=== PATIENT | female | born 1985 | race Caucasian/White ===

== ENCOUNTER 2018-01-21 12:36 | Day surgery (SDC) | payer OTHER ==
[~2018-01-21 12:36] MED LIST: CEFAZOLIN 1 GM INJ; LIDOCAINE 2% (SDV) 5 ML INJ; ROCURONIUM 50 MG INJ; SUGAMMADEX SODIUM 200 MG/2 ML VIAL IV
[2018-01-21] MEDS ORDERED: PROPOFOL 100 ML (14:41)
[2018-01-21] MEDS ORDERED: ROCURONIUM 50 MG INJ (14:41)
[2018-01-21] MEDS ORDERED: KETOROLAC 30 MG INJ (15:15)
[2018-01-21] MEDS ORDERED: DEXAMETHASONE 4 MG/ML 1 ML INJ (15:32)
[2018-01-21] MEDS ORDERED: ONDANSETRON 4 MG INJ (15:33)
[2018-01-21] MEDS: BUPIVACAINE 0.5% (SDV) 30 ML INJ (16:11)
[2018-01-21] MEDS ORDERED: hydrALAzine 20 MG INJ IV (16:30)
[2018-01-21] MEDS ORDERED: MIDAZOLAM 1 MG/ML 2 ML INJ IV (16:30)
[2018-01-21] MEDS ORDERED: OXYCODONE/ACETAMINOPHEN (5/325) TAB PO ×2 (16:30)
[2018-01-21] MEDS ORDERED: KETOROLAC 30 MG INJ IV (16:30)
[2018-01-21] MEDS ORDERED: ONDANSETRON 4 MG INJ IV (16:30)
[2018-01-21] MEDS ORDERED: FENTAnyl 50 MCG/ML VIAL IV ×2 (16:30)
[2018-01-21] MEDS ORDERED: MEPERIDINE 25 MG INJ IV (16:30)
[2018-01-21] MEDS ORDERED: METOCLOPRAMIDE 10 MG INJ IV (16:30)
[2018-01-21] MEDS ORDERED: LABETALOL HCL 20MG INJ IV (16:30)
[2018-01-21] MEDS ORDERED: DIPHENHYDRAMINE 50 MG INJ IV (16:30)
[2018-01-21] MEDS ORDERED: HYDROmorphONE 1 MG/5 ML IV SYRINGE IV ×3 (16:30)
[2018-01-21] MEDS ORDERED: ALBUTEROL 0.083% (NEB) 2.5 MG/3 ML AMP HHN (16:30)
[2018-01-21] MEDS ORDERED: FENTAnyl 50 MCG/ML VIAL (16:48)
[2018-01-21] MEDS: FENTAnyl 50 MCG/ML VIAL IV ×2 (16:52→17:15)
== END 2018-01-21 17:47 | disposition home or self-care (01) ==
LOC: SDS 12:36
DX: M66.241 Spontaneous rupture of extensor tendons, right hand (principal); S66.320A Laceration of extensor muscle, fascia and tendon of right index finger at wrist and hand level, initial encounter; W26.0XXA Contact with knife, initial encounter
CPT/HCPCS: 26418